=== PATIENT | female | born 1975 | race Caucasian/White ===

== ENCOUNTER 2020-10-30 10:43 | Emergency (ER) | payer MEDICAID, SELFPAY ==
[~2020-10-30] VITALS: Ht 167.6 cm; Wt 74.8 kg
[2020-10-30 10:50] VITALS: BP 119/70
--- NOTE | 2020-10-30 10:58 | NUR ---
PT TO AWAIT OUTSIDE IN W/C
[2020-10-30] MEDS ORDERED: MORPHINE SULFATE 4 MG/ML SYR IM ONE (12:15)
--- NOTE | 2020-10-30 12:19 | NUR ---
PATIENT TO -B VIA WHEELCHAIR .
[2020-10-30] MEDS ORDERED: KETOROLAC 30 MG/ML VIAL IM ONE (12:25)
[2020-10-30] MEDS ORDERED: NAPR-54 PO (14:35)
[2020-10-30] MEDS ORDERED: FLUC150T PO (14:35)
--- NOTE | 2020-10-30 14:45 | NUR ---
Patient discharged with v/s stable. Written and verbal after care instructions given and explained. Patient alert, oriented and verbalized understanding of instructions. Wheel Chair Assisted by EMT to car. All questions addressed prior to discharge. ID band removed. Patient advised to follow up with PMD. Rx Naproxen and Diflucan given. Patient educated on indication of medication including possible reaction and side effects. Opportunity to ask questions provided and answered.
== END 2020-10-30 14:45 | disposition home or self-care (01) ==
LOC: MED 10:43
DX: B37.3 Candidiasis of vulva and vagina (principal); G89.29 Other chronic pain; M79.604 Pain in right leg; M79.605 Pain in left leg
CPT/HCPCS: 96372; 99283; J1885